=== PATIENT | female | born 1950 | race Caucasian/White ===

== ENCOUNTER 2022-11-09 16:29 | Emergency (ER) | payer MEDICARE, SELFPAY ==
--- NOTE | 2022-11-09 16:36 | ED.SKABFB ---
HPI - Skin/Abscess/Foreign Bdy General Chief complaint: Skin/Abscess/Foreign Body Stated complaint: face blisters and swelling Time Seen by Provider: 11/09/22 16:36 Source: patient and RN notes reviewed History of Present Illness HPI narrative: Patient is a 71-year-old female who presents to urgent care with complaints of irritation and swelling around the lips and eyes after having her eyebrows and lip wax yesterday. Patient states that she has been using Neosporin for irritation but has not taken anything [id number] for symptom relief. Denies any difficulty swallowing or breathing. No other acute complaints. No acute distress noted. Patient aware of the plan of care. Some parts of this dictation were generated by voice recognition software and may contain typographical and/or grammatical inaccuracies. Related Data Home Medications Medication Instructions Recorded Confirmed alendronate 35 mg tablet mg PO 11/09/22 amitriptyline 25 mg tablet mg 11/09/22 ezetimibe 10 mg tablet mg 11/09/22 furosemide 20 mg tablet mg 11/09/22 levothyroxine 75 mcg tablet mcg 11/09/22 losartan 25 mg tablet mg 11/09/22 magnesium oxide 400 mg (241.3 mg mg 11/09/22 magnesium) tablet metoprolol tartrate 25 mg tablet mg 11/09/22 omeprazole 40 mg capsule,delayed mg 11/09/22 release warfarin 1 mg tablet mg 11/09/22 Allergies Allergy/AdvReac Type Severity Reaction Status Date / Time No Known Allergies Allergy Verified 11/09/22 16:51 Review of Systems Review of Systems: CONSTITUTIONAL: Denies fever, chills, or sweats. EYES: Denies visual changes, redness, or discharge. ENT: Denies rhinorrhea, congestion, sore throat, or otalgia. CARDIOVASCULAR: Denies chest pain, palpitations, or edema. RESPIRATORY: Denies cough or dyspnea. GASTROINTESTINAL: Denies abdominal pain, nausea, vomiting, or diarrhea. GENITOURINARY: Denies dysuria or hematuria. SKIN: Reports of irritation and swelling around the lips and eyes. MUSCULOSKELETAL: Denies back pain, joint pain, or myalgia. NEUROLOGIC: Denies headache, numbness, or weakness. All other systems reviewed are negative, except as documented in HPI. PMFSH Comments At the time of my signature, I reviewed and agree with the nursing past medical, surgical, social, and family history. There is no relevant family history pertinent to the patient complaint. Exam Narrative: GENERAL: This is a well-nourished, well-developed patient, in no apparent distress. HEAD: normocephalic, atraumatic. EYES: PERRL. Sclera clear/white. Vision is grossly intact. EARS: External ears normal NOSE: External nose normal with no obvious nasal discharge, nares without redness, no rhinorrhea. THROAT: Mucous membranes moist, posterior pharynx clear. Patent airway NECK: Neck supple SKIN: Erythema dermatitis to the upper lip and surrounding the eyes with mild edema. Warm, intact with no suspicious lesions or rash, good texture and turgor. NEURO: awake, alert, and oriented to person, place and time. There were no obvious focal neurologic abnormalities. EXTREMITIES: No clubbing, cyanosis, or edema. Course Course Level of Care: Express Care Visit Vital Signs Vital signs: Vital Signs Temperature 97.3 F L 11/09/22 16:37 Pulse Rate 70 11/09/22 16:37 Respiratory Rate 18 11/09/22 16:37 Blood Pressure 151/80 H 11/09/22 16:37 Pulse Oximetry 98 11/09/22 16:37 Oxygen Delivery Room Air 11/09/22 16:37 Temperature 97.3 F L 11/09/22 16:37 Pulse Rate 70 11/09/22 16:37 Respiratory Rate 18 11/09/22 16:37 Blood Pressure 151/80 H 11/09/22 16:37 Pulse Oximetry 98 11/09/22 16:37 Oxygen Delivery Room Air 11/09/22 16:37 Reviewed- Patient is informed that they may have pre-hypertension or hypertension based on a blood pressure reading in the department. I recommend the patient call the primary care provider listed on their discharge instructions or a physician of their choice this week to arran
[2022-11-09 16:37] VITALS: BP 151/80; PULSE 70; RESP 18; TEMP 36.3; O2SAT 98
== END 2022-11-09 17:15 | disposition home or self-care (01) ==
PROVIDERS: Emergency Provider Nurse Practitioner Family; PCP Internal Medicine
DX: L24.89 Irritant contact dermatitis due to other agents (principal)
CPT/HCPCS: 99213; G0463